=== PATIENT | female | born 1935 | race Caucasian/White ===

== ENCOUNTER 2016-11-24 12:58 | Inpatient (IN) | payer MEDICARE, OTHER ==
[~2016-11-24] VITALS: Ht 154.9 cm; Wt 70.8 kg
[~2016-11-24 12:58] MED LIST: ASPIRIN E.C. 8181 MG PO; COZAAR 50MG50 MG/TAB PO; FERROUS SU325 MG/TAB PO; FOLIC ACID 40400 MCG PO; METAMUCIL3.4 GM/DOS PO; PROCARDIA20 MG PO; TYLENOL 500MG500 MG PO; VITAMIN C500 MG PO; WOMEN'S DAILY1 TAB PO; XARELTO10 MG PO
[2017-01-21] MEDS ORDERED: OCUVITE1 TA1 PO (11:42)
[2017-01-24] VITALS (11 sets, daily range): BP systolic 97–145; BP diastolic 48–72; PULSE 60–92; TEMP 98–98.8
[2017-01-24] MEDS ORDERED: ADALAT CC30 MG PO (10:51)
[2017-01-25 00:58] VITALS: BP 111/52; PULSE 71; TEMP 98.5
[2017-01-25 04:00] VITALS: BP 115/56; PULSE 59; TEMP 98.5
[2017-01-25 05:54] LABS: HEMOGLOBIN 12.1 g/dl (12.5-16.0)
[2017-01-25 05:56] LABS: HEMATOCRIT 35.8 % (37.0-47.0)
[2017-01-25 07:00] VITALS: BP 127/62; PULSE 64; TEMP 97.8
[2017-01-25 10:55] VITALS: BP 126/53; PULSE 67; TEMP 97.3
[2017-01-25 15:44] VITALS: BP 141/64; PULSE 75; TEMP 98
[2017-01-25 20:00] VITALS: BP 123/52; PULSE 78; TEMP 97.7
[2017-01-26 04:34] VITALS: BP 136/58; PULSE 78; TEMP 97.5
[2017-01-26 06:10] LABS: HEMATOCRIT 37.8 % (37.0-47.0); HEMOGLOBIN 12.6 g/dl (12.5-16.0)
[2017-01-26 07:00] VITALS: BP 135/50; PULSE 70; TEMP 97.9
[2017-01-26 10:50] VITALS: BP 1133/59; PULSE 75; TEMP 98.1
[2017-01-26 16:33] VITALS: BP 166/61; PULSE 80; TEMP 98.5
[2017-01-26 19:50] VITALS: BP 124/54; PULSE 86; TEMP 98.6
[2017-01-27 00:41] VITALS: BP 110/56; PULSE 98
[2017-01-27 04:40] VITALS: BP 154/69; PULSE 85; TEMP 98.1
[2017-01-27] MEDS ORDERED: XARELTO10 MG PO (07:08)
[2017-01-27] MEDS ORDERED: ULTRAM 50MG TAB50 MG PO (07:09)
[2017-01-27 08:50] VITALS: BP 140/64; PULSE 79; TEMP 98
== END 2017-01-27 10:13 | disposition home or self-care (01) | DRG 470 ==
LOC: JCC 01-24 05:07
PROVIDERS: Orthopaedic Surgery
PROC: 0SRC0J9 Replacement of Right Knee Joint with Synthetic Substitute, Cemented, Open Approach (ICD-10-PCS; principal; 2017-01-24 08:20)
DX: M17.11 Unilateral primary osteoarthritis, right knee (principal); Z85.3 Personal history of malignant neoplasm of breast; Z87.891 Personal history of nicotine dependence
CPT/HCPCS: A4315; A9284; C1713; C1776; J0690; J1100; J2250; J2274; J2370; J2405; J2704; J7042; J7120

== ENCOUNTER → 2020-05-05 | Outpatient (CLI) | payer MEDICARE, MEDICAID ==
[~2020-05-05] MED LIST changes: +ADALAT CC30 MG PO; +OCUVITE1 TA1 PO; +ULTRAM 50MG TAB50 MG PO
== END ==
LOC: COL.RAD 07:40
DX: R10.13 Epigastric pain (principal)

== ENCOUNTER 2021-10-24 06:38 | Emergency (ER) | payer MEDICARE, MEDICAID ==
[~2021-10-24] VITALS: Ht 152.4 cm; Wt 67.7 kg
[2021-10-24 06:44] VITALS: TEMP 97.7
[2021-10-24 07:17] LABS: BASO # 0.1 K/mm3 (0.0-0.2); BASO % 0.6 % (0.0-2.0); EOS # 0.1 K/mm3 (0.0-0.7); EOS % 0.5 % (0.0-4.0); GRAN # 7.8 K/mm3 (1.4-6.5); GRAN % 67.5 % (42.2-75.2); HEMATOCRIT 41.7 % (37.0-47.0); HEMOGLOBIN 14.6 g/dl (12.5-16.0); LYMPH # 2.8 K/mm3 (1.2-3.4); LYMPH % 23.7 % (20.0-51.0); MEAN CELL VOLUME 92 fl (80.0-100.0); MEAN CORPUSCULAR HEMOGLOBIN 32 pg (27-31); MEAN CORPUSCULAR HGB CONC 35 g/dl (33.0-37.0); MEAN PLATELET VOLUME 9.9 fl (7.4-10.4); MONO # 0.9 K/mm3 (0.1-0.6); MONO % 7.5 % (1.7-9.3); PLATELET COUNT 279 K/mm3 (130-400); RED BLOOD COUNT 4.54 M/mm3 (4.10-5.30); REDCELL DISTRIBUTION WIDTH-CV 12.7 % (11.5-14.5)
[2021-10-24 07:36] LABS: ALBUMIN 3.8 gm/dL (3.4-4.8); BILIRUBIN,TOTAL 0.7 mg/dL (0.2-1.2); CALCIUM 8.7 mg/dL (8.4-10.2); CREATININE, serum 0.78 mg/dL (0.57-1.11); POTASSIUM 4.4 mmol/L (3.5-4.5); TOTAL PROTEIN 7.1 gm/dL (6.2-8.1)
[2021-10-24 07:56] LABS: TROPONIN-I 0.013 ng/mL (0.00-0.033); TSH w REFLEX 2.662 uIU/mL (0.350-4.940)
[2021-10-24 09:08] VITALS: BP 177/61; PULSE 42
== END 2021-10-24 09:12 | disposition short-term general hospital (02) ==
LOC: COL.ER 06:38
PROVIDERS: Emergency Medicine
DX: I44.2 Atrioventricular block, complete (principal); I10 Essential (primary) hypertension